=== PATIENT | female | born 1960 | race Caucasian/White ===

== ENCOUNTER 2018-05-01 08:49 | Emergency (ER) | payer OTHER ==
[~2018-05-01] VITALS: Ht 160 cm; Wt 93.9 kg
[2018-05-01 08:59] VITALS: Ht 160 cm; Wt 93.9 kg
[2018-05-01 10:13] VITALS: BP 145/78
== END 2018-05-01 10:13 | disposition home or self-care (01) ==
LOC: ED 08:49
DX: J20.9 Acute bronchitis, unspecified (principal)
CPT/HCPCS: Q0092